=== PATIENT | male | born 1995 | race Two or more races ===

== ENCOUNTER 2020-07-24 09:03 | Outpatient (REF) | payer MEDICAID, SELFPAY | END 2020-07-24 09:04 | disposition home or self-care (01) | LOC: HO.LAB 09:03 | PROVIDERS: Visit Provider Internal Medicine | DX: Z20.822 Contact with and (suspected) exposure to COVID-19 (principal) | CPT/HCPCS: 36415; C9803; U0003; U0005 ==

== ENCOUNTER 2023-07-10 23:37 | Emergency (ER) | payer SELFPAY ==
[2023-07-10 23:56] VITALS: BP 138/80; PULSE 97; RESP 18; TEMP 36.4; O2SAT 96; BMI 28.8
[2023-07-11 00:05] VITALS: BP 133/74; PULSE 103; TEMP 37; O2SAT 98
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
[2023-07-11] MEDS: Erythromycin Base 0.5% Oph Oin 1 GM TUBE 1 CM EYE-RIGHT (01:58)
[2023-07-11] MEDS: Morphine Sulfate Immed Release 15 MG TABLET PO (01:58)
== END 2023-07-11 02:06 | disposition home or self-care (01) ==
PROVIDERS: Emergency Provider Emergency Medicine
DX: S05.01XA Injury of conjunctiva and corneal abrasion without foreign body, right eye, initial encounter (principal); W50.4XXA Accidental scratch by another person, initial encounter; Y93.9 Activity, unspecified; Y92.9 Unspecified place or not applicable; Y99.9 Unspecified external cause status
CPT/HCPCS: 99283

== ENCOUNTER 2024-08-03 18:06 | Emergency (ER) | payer SELFPAY ==
--- NOTE | ~2024-08-03 | XR_ITS ---
CLINICAL HISTORY: low back pain 3 views lumbar spine Comparison: None Findings: Normal vertebral body alignment. No acute fractures or dislocation. Mild narrowing of the L5-S1. IMPRESSION: No acute findings. Mild degenerative change of the lower lumbar spine. This document has been electronically signed by: Suellen Alcantara MD on 08/03/2024 19:43:57
[2024-08-03 18:16] VITALS: BP 151/88; PULSE 79; RESP 16; TEMP 36.3; O2SAT 96; BMI 33.1
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
[2024-08-03 19:58] VITALS: BP 127/78; PULSE 72; RESP 18; TEMP 36.6; O2SAT 96
[2024-08-03 22:35] VITALS: BP 135/84; PULSE 74; RESP 16; TEMP 36.9; O2SAT 97
[2024-08-03 22:37] VITALS: BP 135/84; PULSE 74; RESP 16; TEMP 36.9; O2SAT 97
== END 2024-08-03 22:39 | disposition home or self-care (01) ==
PROVIDERS: Emergency Provider Internal Medicine
DX: S39.012A Strain of muscle, fascia and tendon of lower back, initial encounter (principal); V43.52XA Car driver injured in collision with other type car in traffic accident, initial encounter; Y93.9 Activity, unspecified; Y92.410 Unspecified street and highway as the place of occurrence of the external cause; Y99.8 Other external cause status
CPT/HCPCS: 72100; 99282; 99283

== ENCOUNTER → 2024-08-03 18:18 | Outpatient (BNV) | payer SELFPAY | PROVIDERS: Visit Provider Nuclear Medicine | DX: M54.50 Low back pain, unspecified (principal) | CPT/HCPCS: 72100 ==